=== PATIENT | female | born 1965 | race Caucasian/White ===

== ENCOUNTER 2023-12-21 18:29 | Emergency (ER) | payer SELFPAY ==
[2023-12-21 18:40] VITALS: BP 155/92
[2023-12-21 19:16] LABS: Urine Albumin Negative (Neg - Trace); Urine Bilirubin Negative (Negative); Urine Character Clear (Clear); Urine Color Straw; Urine Glucose Negative (Negative); Urine Ketone Negative (Negative); Urine Leukocyte Trace (Negative); Urine Nitrite Negative (Negative); Urine Occult Blood Negative (Negative); Urine Specific Gravity 1.005 (<1.030); Urine Urobilinogen Negative (Neg - 1+); Urine pH 6.5 (5.0-9.0)
[2023-12-21 19:32] LABS: Urine Bacteria Few (Negative); Urine Red Blood Cell 0-2 /HPF (0-2)
--- NOTE | 2023-12-21 19:41 | ED.GENMED ---
History of Present Illness
General
Chief Complaint: Abdominal Pain
Source: patient
Time Seen by Provider: 12/21/23 19:23
Travel History
Have you had any contact with someone who has COVID-19?: No
Do you have any symptoms of coronavirus? Fever > 100 degrees, chills, cough, shortness of breath, sore throat, loss of taste or smell, muscle aches, or headache?: No
History of Present Illness
History of Present Illness:
This patient is a 58-year-old female presents emergency department complaints of lower abdominal pain that started approximately a week ago, gradual in onset, and continues. She notes that she does not notice the pain if she is distracted. She
denies otherwise exacerbating relieving factors, radiation, nausea, vomiting, anorexia, chest pain, dyspnea, fever, chills, urinary symptoms, vaginal bleeding or discharge, diarrhea, constipation, or other complaints. She describes the pain as
'pressure'
Past History
Past History
ED Past Medical History: HTN and Other (Breast cancer, uterine polyp)
ED Past Surgical History: Gynecological
Social History
Tobacco: Non-smoker
Alcohol: Occasional
Drug: None
Personal:
Living: with family
Phy Exam
Physical Exam
Physical Exam:
GENERAL: Alert , in no apparent distress
EYE: pupils equal and reactive
NECK: Supple, no significant adenopathy.
ENT: o/p clr, mmm.
CARDIAC: Regular rate and rhythm .
LUNGS: Clear breath sounds bilaterally, no acute respiratory distress, no wheezes/rales/rhonchi
ABDOMEN: Soft, diffuse nonspecific upper and lower tenderness, no r/g, no cvat
NEUROLOGICAL: Alert and oriented, no focal neuro deficits
SKIN: Warm and dry, skin intact.
MUSCULOSKELETAL: No edema, well perfused.
PSYCH: Normal and appropriate interaction.
Course
Orders/Labs/Results
Orders:
Orders
12/21/23 19:10
Urinalysis Reflex To Culture Urgent
Date Specimen was Collected: 12/21/23
Time Specimen was Collected: 19:07
Urine Microscopic Reflex Cult Urgent
12/21/23 19:41
CT Abd/Pel (IV only)-DH only Urgent
Comment:
Reason For Exam: lower abd pain, hx csx
12/21/23 19:58
Complete Blood Count/No Diff Urgent
Comprehensive Metabolic Panel Urgent
Lipase Urgent
Abnormal Lab Results
12/21/23 12/21/23
19:10 19:58
MCH 32.6 H pg
(27.0-31.0)
BUN 19 H mg/dl
(7-17)
Glucose 119 H mg/dl
(70-99)
Calcium 10.6 H mg/dl
(8.4-10.2)
AST 38 H U/L
(14-36)
Leukocyte Esterase Rfl Trace A
(Negative)
Urine Bacteria (Reflex) Few A
(Negative)
12/21/23 19:58
12/21/23 19:58
Vital Signs
Initial and Last Documented VS:
Initial Vital Signs
Temp Pulse Resp BP Pulse Ox
98.2 F 69 18 155/92 100
12/21/23 18:40 12/21/23 18:40 12/21/23 18:40 12/21/23 18:40 12/21/23 18:40
Last Documented Vital Signs
Temp Pulse Resp BP Pulse Ox
98.2 F 66 18 132/75 96
12/21/23 18:40 12/21/23 21:28 12/21/23 21:28 12/21/23 21:28 12/21/23 21:28
*Critical Care Note
Total Time (30-74mins, 75-104mins- exclusive of procedures): Not Applicable
Update Note
Update Note:
Patient presents to the Emergency Department with _abdominal pain
Number and Complexity of Problems Addressed at the Encounter
� Chronic conditions affecting care:
� Acute Exacerbation and/or Progression of Chronic Illness:
� Differential Diagnosis includes: But not limited to appendicitis, cholecystitis, diverticulitis, nonspecific benign abdominal pain, etc.
Amount and/or Complexity of Data to be Reviewed and Analyzed
� I performed an independent evaluation of and my interpretation is:
EKG:
CT:No acute inflammatory process within the abdomen or pelvis.
Constipation with moderate colonic fecal burden. No evidence of bowel obstruction.
No obstructive uropathy.
Xrays:
Laboratory Studies:generally unremarkable
Other:
� Review of other/old records reveals: Patient had a uterine polyp procedure and review of prior records
� Clinical information was obtained by an independent historian:
� Prescriptions/Medications Considered but not given:
� Further testing considered but not performed:
Risk of Complications and/or Morbidity or Mortality of Patient Management
� Social determinants of health affecting care:
� Discussion with other providers (PCP, Hospitalists, Consultants, etc):
� Escalation of care including admission/observation vs risk of discharge considered: w/u c/w constipation, t hoerwise no worrisome etiology noted, pt generally well appearing, in nad, abd soft, no n/v/cp etc. D/w pt import of
f/u, tx for constipation and reasons to rted.
ED Attending Note
-
Portions of this chart may have been created with voice recognition software.� Occasional wrong word or��sound alike� substitutions may have occurred due to the inherent limitations of voice recognition software.
Discharge Plan
Departure
Patient Disposition: Home (Routine Discharge)
Date of Disposition: 12/21/23
Time of Disposition: 21:33
Patient with high blood pressure during this ER visit?: Yes
Condition: Good
Discharge Problem:
Abdominal pain, Constipation
Instructions: Constipation, Adult (DC), Abdominal Pain, BLOOD PRESSURE
Prescriptions:
No Action
venlafaxine [Effexor XR] 150 MG capsule,extended release 24hr
150 mg PO DAILY
valacyclovir 500 MG tablet
500 mg PO PRN PRN (Reason: .viral flare)
Patient Comments:
often takes
Saline Nasal Lenora 30 ML aerosol,spray
1 spray intranasal PRN PRN (Reason: congestion)
omeprazole 20 MG tablet,delayed release (DR/EC)
20 mg PO DAILY
Systane Gel 10 ML drops,gel
1 drp BOTH EYES PRN PRN (Reason: irritated eyes)
multivitamin Tablet
1 tab PO DAILY
Rx Instructions:
w/ iron
acetaminophen [Tylenol Extra Strength] 500 mg Tablet
500 mg PO PRN PRN (Reason: pain)
lisinopril 30 mg Tablet
30 mg PO DAILY
cholecalciferol (vitamin D3) 25 mcg (1,000 unit) Tablet
1,000 unit PO DAILY
Referrals:
Ben Blanco, DO [Family Provider] - Next open appointment
Activity Restrictions/Additional Instructions:
IF YOU DEVELOP INCREASING/NEW/PERSISTENT PAIN, FEVER, VOMITING, DIZZINESS, CHEST PAIN,TROUBLE BREATHING, OR OTHER WORRISOME SIGNS, GO TO THE ER IMMEDIATELY!
Interventions
Interventions:
*Risk Screen - Suicide Last Done: 12/21/23 19:50
*General Assessment Last Done: 12/21/23 19:50
*Neglect/Abuse Screening Last Done: 12/21/23 19:50
GN-Vfhuxf-Haqepdltmm Assessment Last Done: 12/21/23 19:55
Discharge Date and Time
Print Language: MACEDONIAN
[2023-12-21 19:52] VITALS: BP 140/77; BMI 36.8
[2023-12-21 20:04] LABS: Hemoglobin 14.2 g/dL (12.0-16.0); Mean Corp Hgb Conc. 34.6 g/dL (33.0-37.0); Mean Corpuscular Hgb 32.6 pg (27.0-31.0); Mean Platelet Volume 9.4 fL (7.4-10.4); Platelet Count 221 10^3/uL (130-400); Red Blood Cell Count 4.36 10^6/uL (4.20-5.40); Red Cell Dist. Width 13.1 % (11.5-14.5); White Blood Cell Count 9.2 10^3/uL (4.8-10.8)
[2023-12-21 20:13] LABS: ALT (SGPT) 33 U/L (0-35); AST (SGOT) 38 U/L (14-36); Albumin 4.3 g/dl (3.5-5.0); Alkaline Phosphatase 104 U/L (38-126); Blood Urea Nitrogen 19 mg/dl (7-17); Calcium 10.6 mg/dl (8.4-10.2); Carbon Dioxide 27 mmol/L (22-30); Chloride 103 mmol/L (98-107); Estimated Creatinine Clearance 65 ml/min; Glucose 119 mg/dl (70-99); Lipase 130 U/L (23-300); Potassium 4.1 mmol/L (3.5-5.1); Sodium 138 mmol/L (135-145); Total Bilirubin 0.4 mg/dl (0.2-1.3); Total Protein 7.2 g/dl (6.3-8.2); eGFR > 60.00
[2023-12-21 21:28] VITALS: BP 132/75
== END 2023-12-21 21:51 | disposition home or self-care (01) ==
LOC: EMR 18:29
PROVIDERS: Emergency Medicine; EMERGENCY PHYSICIAN Emergency Medicine; FAMILY PHYSICIAN Family Medicine
DX: R10.30 Lower abdominal pain, unspecified (principal); K59.00 Constipation, unspecified; I10 Essential (primary) hypertension; Z85.3 Personal history of malignant neoplasm of breast; Z91.040 Latex allergy status; Z91.048 Other nonmedicinal substance allergy status
CPT/HCPCS: 99285; 74177; 80053; 81003; 81015; 83690; 85027; Q9967